=== PATIENT | female | born 1995 | race Caucasian/White ===

== ENCOUNTER 2018-08-08 10:52 | Emergency (ER) | payer OTHER ==
[2018-08-08] MEDS ORDERED: SODIUM CHLORIDE 0.9% 1,000 ML IV STA (11:14)
[2018-08-08] MEDS ORDERED: diphenhydrAMINE 50 MG/ML 1 ML VIAL IVP STA (11:14)
[2018-08-08] MEDS ORDERED: METOCLOPRAMIDE 5 MG/ML 2 ML VIAL IVP STA (11:14)
--- NOTE | 2018-08-08 11:17 | ED ---
Nausea/Vomiting/Diarrhea HPI - General Chief complaint: Nausea/Vomiting/Diarrhea Stated complaint: Vomiting,13 wks pg Time Seen by Provider: 08/08/18 11:04 Source: patient Mode of arrival: wheelchair Limitations: no limitations - History of Present Illness Initial comments: 22-year-old female patient presents to the emergency department today for evaluation of vomiting. Patient states she started vomiting yesterday and has been unable to keep down any food or fluids. Patient states she has had 3 bowel movements today with a have been solid. She denies any fevers or chills with this. Denies any abdominal pain or cramping. States she is 13 weeks . She has had a ultrasound confirming intrauterine . No hematuria, dysuria, urinary urgency, urinary frequency. No abnormal vaginal bleeding or discharge. She denies any recent travel or sick contacts. Denies any use of medications. Patient denies any recent rash, shortness breath, chest pain, back pain, numbness, tingling, dizziness, weakness, headache, visual changes, or any other complaints. - Related Data Previous Rx's Medication Instructions Recorded Cephalexin [Keflex] 500 mg PO Q6H #28 cap 08/08/18 Metoclopramide [Reglan] 10 mg PO Q8H PRN #10 tab 08/08/18 Allergies Allergy/AdvReac Type Severity Reaction Status Date / Time No Known Allergies Allergy Verified 08/08/18 10:55 Review of Systems ROS Statement: Those systems with pertinent positive or pertinent negative responses have been documented in the HPI. ROS Other: All systems not noted in ROS Statement are negative. Past Medical History Past Medical History: No Reported History History of Any Multi-Drug Resistant Organisms: None Reported Past Surgical History: No Surgical Hx Reported Past Psychological History: No Psychological Hx Reported Smoking Status: Current some day smoker Past Alcohol Use History: None Reported Past Drug Use History: Marijuana General Exam Limitations: no limitations General appearance: alert, in no apparent distress, other (Physical well- developed, well-nourished adult female patient in no acute distress. Vital signs upon presentation are temperature 98.4F oral, pulse 105, respirations 20 , blood pressure 112/73, pulse ox 100% on room air.) Eye exam: Present: normal appearance, PERRL, EOMI. Absent: scleral icterus, conjunctival injection, periorbital swelling ENT exam: Present: normal exam, normal oropharynx, mucous membranes moist Respiratory exam: Present: normal lung sounds bilaterally. Absent: respiratory distress, wheezes, rales, rhonchi, stridor Cardiovascular Exam: Present: regular rate, normal rhythm, normal heart sounds. Absent: systolic murmur, diastolic murmur, rubs, gallop, clicks GI/Abdominal exam: Present: soft, normal bowel sounds. Absent: distended, tenderness, guarding, rebound, rigid Neurological exam: Present: alert, oriented X3, CN II-XII intact Psychiatric exam: Present: normal affect, normal mood Skin exam: Present: warm, dry, intact, normal color. Absent: rash Course Vital Signs 08/08/18 08/08/18 10:55 11:18 Temperature 98.5 F Pulse Rate 105 H Respiratory 20 Rate Blood Pressure 112/73 O2 Sat by Pulse 100 Oximetry Medical Decision Making - Medical Decision Making 22-year-old female patient presents to the emergency department today for evaluation of vomiting since 2 AM. Patient is 13 weeks with her first . Patient denies any diarrhea or fever. Labs reviewed and did reveal elevated white blood cell count at 13.2, urinalysis did show evidence of infection with cloudy appearance with 2+ protein, 4+ ketones, large leukocyte esterase, 26 white blood cells, 30 squamous epithelial cells, rare bacteria, few mucous. This has been sent for culture. Upon reevaluation she is feeling much better. We'll start patient on Keflex patient given prescription for Reglan to take as needed though she is advised to avoid use of possible. 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 Return parameters were discussed in detail. She verbalizes understanding and agrees with this plan. - Lab Data Result diagrams: 08/08/18 11:29 08/08/18 11:29 Lab Results 08/08/18 08/08/18 08/08/18 Range/Units 11:29 11:29 11:29 WBC 13.2 H (3.8-10.6) k/uL RBC 4.56 (3.80-5.40) m/uL Hgb 14.0 (11.4-16.0) gm/dL Hct 40.1 (34.0-46.0) % MCV 87.8 (80.0-100.0) fL MCH 30.7 (25.0-35.0) pg MCHC 35.0 (31.0-37.0) g/dL RDW 12.1 (11.5-15.5) % Plt Count 271 (150-450) k/uL Neutrophils % 89 % Lymphocytes % 7 % Monocytes % 3 % Eosinophils % 1 % Basophils % 0 % Neutrophils # 11.8 H (1.3-7.7) k/uL Lymphocytes # 0.9 L (1.0-4.8) k/uL Monocytes # 0.3 (0-1.0) k/uL Eosinophils # 0.1 (0-0.7) k/uL Basophils # 0.0 (0-0.2) k/uL Sodium 137 (137-145) mmol/L Potassium 3.9 (3.5-5.1) mmol/L Chloride 107 (98-107) mmol/L Carbon Dioxide 17 L (22-30) mmol/L Anion Gap 13 mmol/L BUN 9 (7-17) mg/dL Creatinine 0.49 L (0.52-1.04) mg/dL Est GFR (CKD-EPI)AfAm >90 (>60 ml/min/1.73 sqM) Est GFR (CKD-EPI)NonAf >90 (>60 ml/min/1.73 sqM) Glucose 140 H (74-99) mg/dL Calcium 10.0 (8.4-10.2) mg/dL Total Bilirubin 1.1 (0.2-1.3) mg/dL AST 20 (14-36) U/L ALT 11 (9-52) U/L Alkaline Phosphatase 43 (38-126) U/L Total Protein 7.5 (6.3-8.2) g/dL Albumin 4.1 (3.5-5.0) g/dL Amylase 45 (30-110) U/L Lipase 39 (23-300) U/L Urine Color Yellow Urine Appearance Cloudy H (Clear) Urine pH 6.0 (5.0-8.0) Ur Specific [place] 1.028 (1.001-1.035) Urine Protein 2+ H (Negative) Urine Glucose (UA) Negative (Negative) Urine Ketones 4+ H (Negative) Urine Blood Negative (Negative) Urine Nitrite Negative (Negative) Urine Bilirubin Negative (Negative) Urine Urobilinogen <2.0 (<2.0) mg/dL Ur Leukocyte Esterase Large H (Negative) Urine RBC 1 (0-5) /hpf Urine WBC 26 H (0-5) /hpf Ur Squamous Epith Cells 30 H (0-4) /hpf Urine Bacteria Rare H (None) /hpf Urine Mucus Few H (None) /hpf Disposition Clinical Impression: Gastroenteritis Disposition: HOME SELF-CARE Condition: Good Instructions: Gastroenteritis (ED), Acute Nausea and Vomiting (ED) Additional Instructions: Take medications as directed. Complete antibiotic prescription in full. Follow -up with CASTING AND PASTING SUPERVISOR for recheck as soon as possible. Return immediately for any new , worsening, or concerning symptoms. Prescriptions: Cephalexin [Keflex] 500 mg PO Q6H #28 cap Metoclopramide [Reglan] 10 mg PO Q8H PRN #10 tab PRN Reason: Vomiting Is patient prescribed a controlled substance at d/c from ED?: No Referrals: None,Stated [Primary Care Provider] - 1-2 days Time of Disposition: 13:10
[2018-08-08 11:51] LABS: Appearance,Urine Cloudy (Clear); Bacteria,Urine Rare /hpf; Bilirubin,Urine Negative (Negative); Blood,Urine Negative (Negative); Color,Urine Yellow; Glucose,Urine (UA) Negative (Negative); Ketones,Urine 4+ (Negative); Leukocyte Esterase,Urine Large (Negative); Mucus,Urine Few /hpf; Nitrite,Urine Negative (Negative); Protein,Urine 2+ (Negative); RBC,Urine 1 /hpf (0-5); Specific Gravity,Urine 1.028 (1.001-1.035); Squamous Epithelial Cell,Urine 30 /hpf (0-4); Urobilinogen,Urine <2.0 mg/dL (<2.0); WBC,Urine 26 /hpf (0-5)
[2018-08-08 11:53] LABS: ALT 11 U/L (9-52); AST 20 U/L (14-36); Albumin 4.1 g/dL (3.5-5.0); Alkaline Phosphatase 43 U/L (38-126); Amylase 45 U/L (30-110); Anion Gap 13 mmol/L; Blood Urea Nitrogen 9 mg/dL (7-17); Carbon Dioxide 17 mmol/L (22-30); Chloride 107 mmol/L (98-107); Glucose 140 mg/dL (74-99); Lipase 39 U/L (23-300); Potassium 3.9 mmol/L (3.5-5.1); Sodium 137 mmol/L (137-145); Total Bilirubin 1.1 mg/dL (0.2-1.3); Total Protein 7.5 g/dL (6.3-8.2)
[2018-08-08 11:54] LABS: Basophils % (A) 0 %; Eosinophils # (A) 0.1 k/uL (0-0.7); Eosinophils % (A) 1 %; HCT 40.1 % (34.0-46.0); Lymphocytes # (A) 0.9 k/uL (1.0-4.8); Lymphocytes % (A) 7 %; MCH 30.7 pg (25.0-35.0); MCV 87.8 fL (80.0-100.0); Monocytes # (A) 0.3 k/uL (0-1.0); Monocytes % (A) 3 %; Neutrophils # (A) 11.8 k/uL (1.3-7.7); Neutrophils % (A) 89 %; Platelet Count 271 k/uL (150-450); RBC 4.56 m/uL (3.80-5.40); RDW 12.1 % (11.5-15.5); WBC 13.2 k/uL (3.8-10.6)
[2018-08-08] MEDS ORDERED: SODIUM CHLORIDE 0.9% 500 ML 500 ML IV ONE (12:26)
[2018-08-08] MEDS ORDERED: CEPHALEXIN 500MG STARTER PACK 4 CAP BTL PO STA (13:08)
[2018-08-08 13:36] VITALS: BP 118/74; PULSE 96; RESP 18; TEMP 98.1
== END 2018-08-08 13:30 | disposition home or self-care (01) ==
LOC: EC 10:52
DX: O99.611 Diseases of the digestive system complicating pregnancy, first trimester (principal); K52.9 Noninfective gastroenteritis and colitis, unspecified; O99.111 Other diseases of the blood and blood-forming organs and certain disorders involving the immune mechanism complicating pregnancy, first trimester; D72.829 Elevated white blood cell count, unspecified; O98.911 Unspecified maternal infectious and parasitic disease complicating pregnancy, first trimester; O99.331 Smoking (tobacco) complicating pregnancy, first trimester; F17.200 Nicotine dependence, unspecified, uncomplicated; Z53.20 Procedure and treatment not carried out because of patient's decision for unspecified reasons; Z3A.13 13 weeks gestation of pregnancy
CPT/HCPCS: 36415; 80053; 82150; 83690; 85025; 81001; 87086; 99284; 96374; 96375; 96361; J1200; J2765; 87077; 87186

== ENCOUNTER → 2018-10-02 | Outpatient (CLI) | payer OTHER ==
--- NOTE | 2018-10-02 21:59 | US ---
EXAMINATION TYPE: US OB anatomy transabd DATE OF EXAM: 10/02/2018 COMPARISON: NONE HISTORY: 22-year-old female Z34.90 Supervision of Normal TECHNIQUE: Transabdominal (TA) FINDINGS: EXAM MEASUREMENTS: GESTATIONAL AGE / DATING Physician Established: (21 weeks/1 days) EDC: 02/11/2019 Dates by LMP: (21 weeks/1 days) EDC: 02/11/2019 Dates by First Scan: No previous at this facility Dates by Current Scan for: (21 weeks/1 days) EDC: 02/11/2019 SURVEY IUP: Single PLACENTA: Posterior PREVIA: No previa DANYELLE: 14.8 cm Normal CERVICAL LENGTH (transabdominal: norm > 3.0cm): 3.3 cm BIOMETRY PRESENTATION: Breech LIE: Transverse lie with head maternal Left BPD: 4.7 cm 20 weeks / 2 days HC: 18.0 cm 20 weeks / 4 days AC: 17.1 cm 22 weeks / 1 days FL: 3.5 cm 21 weeks / 1 days ESTIMATED WEIGHT IN GRAMS: 424 grams ESTIMATED WEIGHT IN LBS/OZ: 0 lbs. 15 oz. WEIGHT PERCENTAGE BASED ON ESTABLISHED DATE: 61% HC/AC: 1.05 Normal FL/AC: 20% Normal HEART RATE: 158 bpm RHYTHM: Normal ANATOMY SEEN (within normal limits): Lateral Vent (< 1 cm) 0.5 cm Cisterna Magna (< 1.1 cm) 0.4 cm Nuchal Fold (< 0.6 cm) 0.2 cm Cerebellum (varies with age) 2.2 cm Choroid Plexus (bilateral) Midline Falx Cavus Septi Pellucidi Four Chamber Heart Stomach Situs Nose / Lips Diaphragm Kidneys (bilateral) Bladder Cord Insert Three Vessel Cord Arms (bilateral) Legs (bilateral) ANATOMY SUBOPTIMALLY VISUALIZED (due to positioning): Outflow tracts: LVOT/RVOT Longitudinal Spine (as the skin line was not clearly delineated) Transverse Spine Photovoltaic Installer notes: Viable IUP, measurements consistent with dates. IMPRESSION: 1. Single live intrauterine with estimated gestational age of 21 weeks 1 day by LMP. Cardia c ultrasound biometry is exactly concordant place and the child at the 61st percentile for weight. 2. A few of the structures on the survey -- outflow tracts and spine (due to inability to delin eate the skin line during the time of the exam) --were suboptimally visualized. The remaining structu res appear normal. Patient can return for a rescan in one to 2 weeks if desired.
== END | disposition home or self-care (01) ==
LOC: RADUSWWP 10:46
PROVIDERS: ATTEND Obstetrics & Gynecology
DX: Z34.92 Encounter for supervision of normal pregnancy, unspecified, second trimester (principal); Z3A.21 21 weeks gestation of pregnancy
CPT/HCPCS: 76811

== ENCOUNTER → 2018-10-31 | Outpatient (CLI) | payer OTHER ==
--- NOTE | 2018-10-31 11:32 | US ---
EXAMINATION TYPE: US OB >= 14 wk fetus DATE OF EXAM: 10/31/2018 COMPARISON: US 2019 CLINICAL HISTORY: Z34.90 supervision normal pregnancyFollow up for previous limited anatomy TECHNIQUE: Transabdominal (TA) GESTATIONAL AGE / DATING Physician Established: (25 weeks/2 days) EDC: 02/11/2019 Dates by LMP: (25 weeks/2 days) EDC: 02/11/2019 Dates by First Scan: (25 weeks/2 days) EDC: 02/11/2019 Dates by Current Scan: (25 weeks/2 days) EDC: 02/11/2019 SURVEY IUP: Single PLACENTA: Posterior PREVIA: No Previa DANYELLE: 12.7 cm Normal CERVICAL LENGTH (transabdominal: norm > 3.0cm): 3.3 cm BIOMETRY PRESENTATION: Vertex BPD: 6.3 cm 25 weeks / 4 days HC: 22.6 cm 24 weeks / 5 days AC: 20.4 cm 25 weeks / 0 days FL: 4.7 cm 25 weeks / 5 days ESTIMATED WEIGHT IN GRAMS: 786 grams ESTIMATED WEIGHT IN LBS/OZ: 1 lbs. 12 oz. WEIGHT PERCENTAGE BASED ON ESTABLISHED DATES: 37% HC/AC: 1.11 Normal FL/AC: 23% Normal HEART RATE: 150 bpm RHYTHM: Normal ANATOMY SEEN (within normal limits): Outflow tracts: LVOT/RVOT Longitudinal Spine Transverse Spine Live single IUP measuring 25 weeks 2 days with a heart rate of 150bpm and an estimated delivery date of 02/11/2019. IMPRESSION: Single live intrauterine with a calculated sonographic age of 25 weeks and 2 days and an es timated date of delivery of 02/11/2019, concordant with menstrual age. Visualized anatomy appears with in normal limits.
== END | disposition home or self-care (01) ==
LOC: RADUSWWP 10:37
PROVIDERS: ATTEND Obstetrics & Gynecology
DX: Z34.92 Encounter for supervision of normal pregnancy, unspecified, second trimester (principal); Z3A.25 25 weeks gestation of pregnancy
CPT/HCPCS: 76805

== ENCOUNTER → 2019-01-26 | Outpatient (CLI) | payer OTHER ==
--- NOTE | 2019-01-26 17:08 | US ---
EXAMINATION TYPE: US OB >= 14 wk fetus DATE OF EXAM: 01/26/2019 COMPARISON: US CLINICAL HISTORY: Z34.90 Encounter for supervision of normal pregn; for growth TECHNIQUE: Transabdominal (TA) GESTATIONAL AGE / DATING Physician Established: (37 weeks/5 days) EDC: 02/11/2019 Dates by LMP: (37 weeks/5 days) EDC: 02/11/2019 Dates by First Scan: (37 weeks/5 days) EDC: 02/11/2019 Dates by Current Scan: (34 weeks/4 days) EDC: 03/05/2019 Beta HCG (if available): NA SURVEY IUP: Single PLACENTA: fundal posterior PREVIA: No Previa DANYELLE: 11.8 cm Normal CERVICAL LENGTH (transabdominal: norm > 3.0cm): 3.2 cm BIOMETRY PRESENTATION: Vertex LIE: Longitudinal BPD: 8.6 cm 34 weeks / 4 days HC: 31.5 cm 35 weeks / 2 days AC: 31.0 cm 35 weeks / 0 days FL: 6.8 cm 34 weeks / 6 days ESTIMATED WEIGHT IN GRAMS: 2553.0 grams ESTIMATED WEIGHT IN LBS/OZ: 5 lbs. 10 oz. WEIGHT PERCENTAGE BASED ON ESTABLISHED DATES: 6.1% HC/AC: 1.02 normal FL/AC: 21.87 Normal HEART RATE: 136 bpm RHYTHM: Normal IMPRESSION: Single, live IUP, 34 weeks/4 days, EDC: 03/05/2019, HR 136bpm.
== END | disposition home or self-care (01) ==
LOC: RADUSWWP 16:01
PROVIDERS: ATTEND Obstetrics & Gynecology
DX: Z3A.34 34 weeks gestation of pregnancy (principal); Z36.89 Encounter for other specified antenatal screening
CPT/HCPCS: 76805

== ENCOUNTER 2019-09-02 16:08 | Emergency (ER) | payer OTHER ==
[2019-09-02 16:11] VITALS: TEMP 100.3
[2019-09-02] MEDS ORDERED: ACETAMINOPHEN TAB 325 MG TAB PO STA (16:21)
--- NOTE | 2019-09-02 16:26 | ED ---
General Adult HPI - General Chief complaint: Upper Respiratory Infection Stated complaint: cough, chills Time Seen by Provider: 09/02/19 16:12 Source: patient, RN notes reviewed, old records reviewed Mode of arrival: ambulatory Limitations: no limitations - History of Present Illness Initial comments: 22-year-old female patient with no pertinent past history presents ED for chief complaint of sore throat, cough, congestion, fever, headache last 2 days. Patient reports this feels similar to her migraine headaches in the past. Does report that it is a throbbing headache. Denies taking anything for the discomfort including tylenol Motrin. Patient does not believe that she is however reports that she is somewhat noncompliant with her control would like to be checked for . Systemic: Pt denies fatigue, chills, rash. Pt denies weakness, night sweats, weight loss. Neuro: Pt denies visual disturbances, syncope or pre-syncope. HEENT: Pt denies ocular discharge or irritation, otalgia, rhinorrhea, or notable lymphadenopathy. Cardiopulmonary: Pt denies chest pain, SOB, heart palpitations, dyspnea on exertion. Abdominal/GI: Pt denies abdominal pain, n/v/d. : Pt denies dysuria, burning w/ urination, frequency/urgency. Denies new onset urinary or bowel incontinence. MSK: Pt denies myalgia, loss of strength or function in extremities. Neuro: Pt denies new onset weakness, paresthesias. - Related Data Previous Rx's Medication Instructions Recorded Cephalexin [Keflex] 500 mg PO Q6H #28 cap 08/08/18 Metoclopramide [Reglan] 10 mg PO Q8H PRN #10 tab 08/08/18 Oseltamivir [Tamiflu] 75 mg PO Q12HR 5 Days cap 09/02/19 Allergies Allergy/AdvReac Type Severity Reaction Status Date / Time No Known Allergies Allergy Verified 09/02/19 16:11 Review of Systems ROS Statement: Those systems with pertinent positive or pertinent negative responses have been documented in the HPI. ROS Other: All systems not noted in ROS Statement are negative. Past Medical History Past Medical History: No Reported History History of Any Multi-Drug Resistant Organisms: None Reported Past Surgical History: No Surgical Hx Reported Past Psychological History: No Psychological Hx Reported Smoking Status: Former smoker Past Alcohol Use History: None Reported Past Drug Use History: Marijuana General Exam - General Exam Comments Initial Comments: Constitutional: NAD, AOX3, Pt has pleasant affect. HEENT: NC/AT, trachea midline, neck supple, no lymphadenopathy. Posterior pharynx non erythematous, without exudates. External ears appear normal, without discharge. Mucous membranes moist. Eyes PERRLA, EOM intact. There is no scleral icterus. No pallor noted. Cardiopulmonary: RRR, no murmurs, rubs or gallops, no JVD noted. Lungs CTAB in anterior and posterior zheng. No peripheral edema. Abdominal exam: Abdomen soft and non-distended. Abdomen non-tender to palpation in all 4 quadrants. Bowel sounds active in LLQ. No hepatosplenomegaly. No ecchymosis Neuro: CN II-XII intact. No nuchal rigidity. No raccon eyes, no rm sign, no hemotympanum. No cervical spinal tenderness. NIH 0. MSK: No posterior calf tenderness bilaterally, homans sign negative bilaterally. Posterior tibialis and radial pulse +2 bilaterally. Sensation intact in upper and lower extremities. Full active ROM in upper and lower extremities, 5/5 stregnth. Limitations: no limitations Course Vital Signs 09/02/19 16:08 Temperature 100.3 F H Pulse Rate 124 H Respiratory 18 Rate Blood Pressure 112/58 O2 Sat by Pulse 99 Oximetry Medical Decision Making - Medical Decision Making 22-year-old female patient with no pertinent past history presents ED for chief complaint of sore throat, cough, congestion, fever, headache last 2 days. Patient reports this feels similar to her migraine headaches in the past. Does report that it is a throbbing headache. Denies taking anything for the discomfort including tylenol Motrin. Patient does not believe that she is however reports that she is somewhat noncompliant with her control would like to be checked for . Patient also displayed mild fever, patient Mr. diaphoretic. Physical exam displayed intact neurologic exam, no pathologic findings noted. Laboratory investigations were obtained which displayed influenza A positive. Group A strep negative. Urine did display +2 ketones, +1 glucose, was contaminated will be cultured. Chest x-ray is negative for acute cardiopulmonary process. I symptoms onset within the last 48 hours patient be initiated on Tamiflu. We'll follow up with primary care provider will return to ER if condition worsens. Case discussed with Dr. Phoenix. - Lab Data Lab Results 09/02/19 09/02/19 09/02/19 Range/Units 16:25 16:25 16:25 Urine Color Yellow Urine Appearance Cloudy H (Clear) Urine pH 6.0 (5.0-8.0) Ur Specific [place] 1.030 (1.001-1.035) Urine Protein 1+ H (Negative) Urine Glucose (UA) Negative (Negative) Urine Ketones 2+ H (Negative) Urine Blood Negative (Negative) Urine Nitrite Negative (Negative) Urine Bilirubin Negative (Negative) Urine Urobilinogen <2.0 (<2.0) mg/dL Ur Leukocyte Esterase Large H (Negative) Urine RBC 2 (0-5) /hpf Urine WBC 92 H (0-5) /hpf Ur Squamous Epith Cells 59 H (0-4) /hpf Urine Bacteria Few H (None) /hpf Urine Mucus Few H (None) /hpf Urine HCG, Qual Not Detected (Not Detectd) Influenza Type A RNA Detected H (Not Detectd) Influenza Type B (PCR) Not Detected (Not Detectd) Group A Strep Rapid (Negative) 09/02/19 Range/Units 16:42 Urine Color Urine Appearance (Clear) Urine pH (5.0-8.0) Ur Specific [place] (1.001-1.035) Urine Protein (Negative) Urine Glucose (UA) (Negative) Urine Ketones (Negative) Urine Blood (Negative) Urine Nitrite (Negative) Urine Bilirubin (Negative) Urine Urobilinogen (<2.0) mg/dL Ur Leukocyte Esterase (Negative) Urine RBC (0-5) /hpf Urine WBC (0-5) /hpf Ur Squamous Epith Cells (0-4) /hpf Urine Bacteria (None) /hpf Urine Mucus (None) /hpf Urine HCG, Qual (Not Detectd) Influenza Type A RNA (Not Detectd) Influenza Type B (PCR) (Not Detectd) Group A Strep Rapid Negative (Negative) Disposition Clinical Impression: Influenza A Disposition: HOME SELF-CARE Condition: Stable Instructions (If sedation given, give patient instructions): Influenza (ED) Additional Instructions: Follow-up with primary care provider tomorrow. Take Tamiflu as directed. May use Tylenol as needed for fever. Return to ER if condition worsens. Prescriptions: Oseltamivir [Tamiflu] 75 mg PO Q12HR 5 Days cap Is patient prescribed a controlled substance at d/c from ED?: No Referrals: None,Stated [Primary Care Provider] - 1-2 days
[2019-09-02 16:40] LABS: Appearance,Urine Cloudy (Clear); Bacteria,Urine Few /hpf; Bilirubin,Urine Negative (Negative); Blood,Urine Negative (Negative); Color,Urine Yellow; Glucose,Urine (UA) Negative (Negative); Ketones,Urine 2+ (Negative); Leukocyte Esterase,Urine Large (Negative); Mucus,Urine Few /hpf; Nitrite,Urine Negative (Negative); Protein,Urine 1+ (Negative); RBC,Urine 2 /hpf (0-5); Squamous Epithelial Cell,Urine 59 /hpf (0-4); Urobilinogen,Urine <2.0 mg/dL (<2.0); WBC,Urine 92 /hpf (0-5)
--- NOTE | 2019-09-02 16:57 | XR ---
EXAMINATION TYPE: XR chest 2V DATE OF EXAM: 09/02/2019 COMPARISON: NONE HISTORY: Chest pain TECHNIQUE: Frontal and lateral views of the chest are obtained. FINDINGS: There is no focal air space opacity. No evidence for pneumothorax. No pleural effusion. The cardiac silhouette size is within normal limits. The osseous structures are grossly intact. IMPRESSION: 1. No acute cardiopulmonary process.
[2019-09-02] MEDS ORDERED: OSELTAMIVIR 75 MG CAP PO STA (17:13)
[2019-09-02 17:39] VITALS: BP 122/62; PULSE 102; RESP 16
--- NOTE | 2019-09-02 17:45 | ED ---
Medical Decision Making - Medical Decision Making Patient reports that headache had resolved upon discharge. - Lab Data Lab Results 09/02/19 09/02/19 09/02/19 Range/Units 16:25 16:25 16:25 Urine Color Yellow Urine Appearance Cloudy H (Clear) Urine pH 6.0 (5.0-8.0) Ur Specific [place] 1.030 (1.001-1.035) Urine Protein 1+ H (Negative) Urine Glucose (UA) Negative (Negative) Urine Ketones 2+ H (Negative) Urine Blood Negative (Negative) Urine Nitrite Negative (Negative) Urine Bilirubin Negative (Negative) Urine Urobilinogen <2.0 (<2.0) mg/dL Ur Leukocyte Esterase Large H (Negative) Urine RBC 2 (0-5) /hpf Urine WBC 92 H (0-5) /hpf Ur Squamous Epith Cells 59 H (0-4) /hpf Urine Bacteria Few H (None) /hpf Urine Mucus Few H (None) /hpf Urine HCG, Qual Not Detected (Not Detectd) Influenza Type A RNA Detected H (Not Detectd) Influenza Type B (PCR) Not Detected (Not Detectd) Group A Strep Rapid (Negative) 09/02/19 Range/Units 16:42 Urine Color Urine Appearance (Clear) Urine pH (5.0-8.0) Ur Specific [place] (1.001-1.035) Urine Protein (Negative) Urine Glucose (UA) (Negative) Urine Ketones (Negative) Urine Blood (Negative) Urine Nitrite (Negative) Urine Bilirubin (Negative) Urine Urobilinogen (<2.0) mg/dL Ur Leukocyte Esterase (Negative) Urine RBC (0-5) /hpf Urine WBC (0-5) /hpf Ur Squamous Epith Cells (0-4) /hpf Urine Bacteria (None) /hpf Urine Mucus (None) /hpf Urine HCG, Qual (Not Detectd) Influenza Type A RNA (Not Detectd) Influenza Type B (PCR) (Not Detectd) Group A Strep Rapid Negative (Negative) Disposition Clinical Impression: Influenza A Disposition: HOME SELF-CARE Condition: Stable Instructions (If sedation given, give patient instructions): Influenza (ED) Additional Instructions: Follow-up with primary care provider tomorrow. Take Tamiflu as directed. May use Tylenol as needed for fever. Return to ER if condition worsens. Prescriptions: Oseltamivir [Tamiflu] 75 mg PO Q12HR 5 Days cap Is patient prescribed a controlled substance at d/c from ED?: No Referrals: None,Stated [Primary Care Provider] - 1-2 days
== END 2019-09-02 17:42 | disposition home or self-care (01) ==
LOC: EC 16:08
DX: J10.1 Influenza due to other identified influenza virus with other respiratory manifestations (principal); Z91.19 Patient's noncompliance with other medical treatment and regimen; Z87.891 Personal history of nicotine dependence; Z86.69 Personal history of other diseases of the nervous system and sense organs
CPT/HCPCS: 71046; 81001; 81025; 87077; 87081; 87086; 87186; 87430; 87502; 99284

== ENCOUNTER → 2022-03-26 | Outpatient (CLI) | payer OTHER ==
--- NOTE | 2022-03-26 07:44 | US ---
EXAMINATION TYPE: US abdomen complete DATE OF EXAM: 03/26/2022 COMPARISON: NONE CLINICAL HISTORY: R10.2 SUBRAPUBIC PAIN,Z84.2 FAM H XOVARIAN CYST. TECHNIQUE: Multiple sonographic images of the abdomen are obtained. FINDINGS: EXAM MEASUREMENTS: Liver Length: 10.9 cm Gallbladder Wall: 0.3 cm CBD: 0.3 cm Spleen: 12.0 cm Right Kidney: 11.3 x 3.9 x 5.0 cm Left Kidney: 9.8 x 4.7 x 5.0 cm TELEVISION [employer]SC[employer] DIRECTOR NOTES: Pancreas: visualized portions wnl Liver: wnl Gallbladder: No stones seen Evidence for sonographic Faulkner's sign: No CBD: wnl Spleen: wnl Right Kidney: No hydronephrosis or masses seen Left Kidney: No hydronephrosis or masses seen Upper IVC: wnl Abd Aorta: wnl The liver is homogenous. The intrahepatic portion of the IVC and proximal abdominal aorta are within normal limits. There is no evidence of cholelithiasis. Common bile duct is unremarkable. The visu alized portions of the pancreas are homogenous. The spleen is unremarkable. Kidneys are symmetric a nd free of hydronephrosis. No renal lesions are seen. IMPRESSION: Unremarkable study
--- NOTE | 2022-03-26 07:46 | US ---
EXAMINATION TYPE: US pelvic complete DATE OF EXAM: 03/26/2022 COMPARISON: NONE CLINICAL HISTORY: R10.2 SUBRAPUBIC PAIN,Z84.2 FAM H XOVARIAN CYST. TECHNIQUE: Transabdominal (TA). Date of LMP: 02/28/2022 EXAM MEASUREMENTS: Uterus: 7.2 x 4.1 x 5.1 cm Endometrial Stripe: 0.9 cm Right Ovary: 2.5 x 2.0 x 2.0 cm Left Ovary: 2.7 x 2.3 x 2.2 cm 1. Uterus: Anteverted wnl 2. Endometrium: wnl 3. Right Ovary: wnl 4. Left Ovary: wnl 5. Bilateral Adnexa: wnl 6. Posterior cul-de-sac: no free fluid IMPRESSION: No discrete abnormality appreciated.
== END | disposition home or self-care (01) ==
LOC: RADUSWWP 07:01
PROVIDERS: ATTEND Family Medicine
DX: R10.2 Pelvic and perineal pain (principal); Z84.2 Family history of other diseases of the genitourinary system
CPT/HCPCS: 76700; 76856

== ENCOUNTER → 2022-06-16 | Outpatient (CLI) | payer OTHER ==
--- NOTE | 2022-06-16 11:37 | US ---
EXAMINATION TYPE: Transabdominal DATE OF EXAM: 06/16/2022 11:22 AM COMPARISON: NONE CLINICAL HISTORY: Z34.90 SUPRVSN NORMAL . Positive beta hCG test. EXAM PERFORMED: Transabdominal (TA) EXAM MEASUREMENTS: GESTATIONAL AGE / DATING Physician Established: Not yet established Dates by LMP: (11 weeks/2 days) EDC: 01-03-23 Dates by First Scan: No previous this is first scan Dates by Current Scan for: (8 weeks/0 days) EDC: 01-26-22 MATERNAL ANATOMY Uterus: 8.2 x 7.1 x 6.9cm Right Ovary: 3.6 x 3.1 x 2.7cm Left Ovary: 2.6 x 2.3 x 1.9cm Post CDS / Adnexa: wnl Presence of free fluid: no GESTATION / SURVEY CRL: 1.6 (8 weeks/0 days) Yolk Sac (normal less than 6mm): 3mm Heart Rate: 155 bpm Rhythm: Normal IUP: Viable IUP Date of LMP: 03-29-22 Beta HcG (if available): Not available at this time Single live intrauterine gestation as gestational sac, yolk sac, and pole are seen. No free flu id. Both ovaries seen. No suspicious extra ovarian adnexal masses. IMPRESSION: Single live intrauterine gestation, mean crown-rump length 1.6 cm corresponding to 8 week 0 day old fetus.
== END | disposition home or self-care (01) ==
LOC: RADUSWWP 11:02
PROVIDERS: ATTEND Obstetrics & Gynecology
DX: Z34.91 Encounter for supervision of normal pregnancy, unspecified, first trimester (principal); Z3A.11 11 weeks gestation of pregnancy
CPT/HCPCS: 76801

== ENCOUNTER → 2022-08-31 | Outpatient (CLI) | payer OTHER ==
--- NOTE | 2022-08-31 14:28 | US ---
EXAMINATION TYPE: US OB anatomy transabd DATE OF EXAM: 08/31/2022 COMPARISON: 06/16/2022 HISTORY: 26-year-old female Z34.90 NORMAL PREG, UNSP Anatomy scan. TECHNIQUE: Transabdominal (TA) FINDINGS: EXAM MEASUREMENTS: GESTATIONAL AGE / DATING Physician Established: (18 weeks/6 days) EDC: 01/26/2023 Dates by First Scan: (18 weeks/6 days) EDC: 01/26/2023 Dates by Current Scan for: (19 weeks/5 days) (6 days more than expected from 06/16/2022) EDC: 01/20/2023 SURVEY IUP: Single PLACENTA: Anterior PREVIA: No previa DANYELLE: 14.9 cm Normal CERVICAL LENGTH (transabdominal: norm > 3.0cm): 4.2 cm BIOMETRY LIE: Transverse lie with head to maternal left BPD: 4.5 cm 19 weeks / 5 days HC: 16.7 cm 19 weeks / 3 days AC: 14.4 cm 19 weeks / 6 days FL: 3.1 cm 19 weeks / 5 days ESTIMATED WEIGHT IN GRAMS: 305 grams ESTIMATED WEIGHT IN LBS/OZ: 0 lbs. 11 oz. WEIGHT PERCENTAGE BASED ON ESTABLISHED DATE: 88 % HC/AC: 1.2 Normal FL/AC: 22% HEART RATE: 147 bpm RHYTHM: Normal ANATOMY SEEN (within normal limits): Lateral Vent (< 1 cm) 0.7 cm Cisterna Magna (< 1.1 cm) 0.4 cm Nuchal Fold (< 0.6 cm) 0.5 cm Cerebellum (varies with age) 1.9 cm Choroid Plexus (bilateral) Midline Falx Cavus Septi Pellucidi Four Chamber Heart Outflow tracts: RVOT Stomach Situs Nose / Lips Diaphragm Kidneys (bilateral) Bladder Cord Insert Three Vessel Cord Longitudinal Spine Transverse Spine Arms (bilateral) Legs (bilateral) ANATOMY NOT SEEN adequately: Outflow tracts: LVOT IMPRESSION: 1. Single live intrauterine with established gestational age of 18 weeks 6 days by prior da ting scan. Current ultrasound biometry is larger at 19 weeks 5 days placing the child at the 88th per centile for weight. Follow-up as clinically indicated. 2. The LVOT was not adequately visualized. Patient can return for rescan for the LVOT in 1 to 2 weeks . The remaining anatomy appears normal.
== END | disposition home or self-care (01) ==
LOC: RADUSWWP 08:17
PROVIDERS: ATTEND Obstetrics & Gynecology
DX: Z34.92 Encounter for supervision of normal pregnancy, unspecified, second trimester (principal); Z3A.19 19 weeks gestation of pregnancy
CPT/HCPCS: 76811

== ENCOUNTER → 2023-01-06 | Outpatient (CLI) | payer OTHER ==
--- NOTE | 2023-01-06 14:43 | US ---
EXAMINATION TYPE: US OB >= 14 wk fetus DATE OF EXAM: 01/06/2023 COMPARISON: None CLINICAL INDICATION: Female, 27 years old with history of Z34.90 SUPERVISION OF NORMAL ; [facility] TECHNIQUE: OBTA GESTATIONAL AGE / DATING Physician Established: (37 weeks/1 days) EDC: 01/26/2023 Dates by LMP: (37 weeks/1 days) EDC: 01/26/2023 Dates by First Scan: (37 weeks/1 days) EDC: 01/26/2023 Dates by Current Scan: (36 weeks/3 days) (8 days less growth than expected compared to 09/24/2022) EDC: 01/31/2023 SURVEY IUP: Single PLACENTA: Anterior - fundal PREVIA: No Previa DANYELLE: 14.5 cm Normal CERVICAL LENGTH (transabdominal: norm > 3.0cm): 3.4 cm BIOMETRY PRESENTATION: Vertex LIE: Longitudinal BPD: 8.6 cm 34 weeks / 4 days HC: 31.3 cm 35 weeks / 1 days AC: 33.8 cm 37 weeks / 5 days FL: 7.4 cm 38 weeks / 1 days ESTIMATED WEIGHT IN GRAMS: 3112 grams ESTIMATED WEIGHT IN LBS/OZ: 6 lbs. 14 oz. WEIGHT PERCENTAGE BASED ON ESTABLISHED DATES: 56% (versus 67%, previously) HC/AC: 0.9 Normal FL/AC: 22 Normal HEART RATE: 179 bpm RHYTHM: Normal IMPRESSION: 1. Single live intrauterine with estimated gestational age of 37 weeks 1 day by LMP. Curren t ultrasound biometry is concordant at 36 weeks 3 days (though with 8 days less growth than expected compared to 09/24/2022). 2. EFW percentile now 56% compared to 67%, previously. 3. heart rate 179 BPM. Follow-up as clinically indicated.
== END | disposition home or self-care (01) ==
LOC: RADUSWWP 07:14
PROVIDERS: ATTEND Obstetrics & Gynecology
DX: Z34.93 Encounter for supervision of normal pregnancy, unspecified, third trimester (principal); Z3A.37 37 weeks gestation of pregnancy
CPT/HCPCS: 76805

== ENCOUNTER 2023-01-19 21:40 | Inpatient (IN) | payer OTHER ==
[2023-01-19] MEDS ORDERED: miSOPROStoL 200 MCG TAB PO PRN (22:20)
[2023-01-19] MEDS ORDERED: PENICILLIN G POTASSIUM 5,000,000 UNIT in DEXTROSE 5% IN WATER 100 ML IVPB STA ×2 (22:20)
[2023-01-19] MEDS ORDERED: METHYLERGONOVINE 0.2 MG/ML 1 ML AMP IM PRN (22:20)
[2023-01-19] MEDS ORDERED: OXYTOCIN 10 UNIT/ML 1 ML VIAL IM PRN (22:20)
[2023-01-19] MEDS ORDERED: TERBUTALINE 1 MG/ML VIAL SQ PRN (22:20)
[2023-01-19] MEDS ORDERED: TRANEXAMIC ACID IN NACL,ISO-OS 1,000 MG in EMPTY BAG 1 BAG IV PRN (22:20)
[2023-01-19] MEDS ORDERED: LIDOCAINE 0.5% (PF) 5 MG/ML (50 ML SDV) SQ PRN (22:20)
[2023-01-19] MEDS ORDERED: CARBOPROST TROMETHAMINE 250 MCG/ML 1 ML AMP IM PRN (22:20)
[2023-01-19] MEDS ORDERED: OXYTOCIN 30 UNITS/500 ML NS 30 UNIT in SALINE 1 500ML.BAG IV SCH (22:30)
[2023-01-19] MEDS ORDERED: LACTATED RINGERS 1,000 ML IV SCH (22:30)
[2023-01-19 23:12] LABS: Appearance,Urine Cloudy (Clear); Bacteria,Urine Rare /hpf; Bilirubin,Urine Negative (Negative); Blood,Urine Trace (Negative); Color,Urine Yellow; Glucose,Urine (UA) Negative (Negative); Ketones,Urine 2+ (Negative); Leukocyte Esterase,Urine Trace (Negative); Mucus,Urine Moderate /hpf; Nitrite,Urine Negative (Negative); Protein,Urine 1+ (Negative); RBC,Urine 16 /hpf (0-5); Specific Gravity,Urine 1.028 (1.001-1.035); Squamous Epithelial Cell,Urine 5 /hpf (0-4); WBC,Urine 3 /hpf (0-5)
[2023-01-19 23:13] LABS: Basophils % (A) 0 %; Eosinophils % (A) 0 %; HGB 12.5 gm/dL (11.4-16.0); Lymphocytes # (A) 2.1 k/uL (1.0-4.8); Lymphocytes % (A) 18 %; MCH 31.7 pg (25.0-35.0); MCHC 34.8 g/dL (31.0-37.0); Mean Platelet Volume 7.9; Monocytes # (A) 0.6 k/uL (0-1.0); Monocytes % (A) 5 %; Neutrophils # (A) 8.5 k/uL (1.3-7.7); Neutrophils % (A) 74 %; Platelet Count 307 k/uL (150-450); RBC 3.96 m/uL (3.80-5.40); WBC 11.5 k/uL (3.8-10.6)
[2023-01-19 23:17] LABS: Amphetamine Screen,Urine Not Detected (NotDetected); Barbiturate Screen,Urine Not Detected (NotDetected); Benzodiazepines Screen,Urine Not Detected (NotDetected); Cocaine Screen,Urine Not Detected (NotDetected); Methadone Screen, Urine Not Detected (NotDetected); Opiate Screen,Urine Not Detected (NotDetected); Oxycodone Screen, Urine Not Detected (NotDetected); Phencyclidine Screen,Urine Not Detected (NotDetected); Tricyclic Antidepressant,Urine Not Detected (NotDetected); Urn Cannabinoid Scrn Detected (NotDetected)
--- NOTE | 2023-01-19 23:53 | P.HPOB ---
History of Present Illness H&P Date: 01/19/23 Chief Complaint: 39-0/7 weeks, active labor, no local care The patient is a 27-year-old 2 para 1001 admitted at 39-0/7 weeks as established by an 8 week ultrasound. She is admitted with no local care, her care having been received at [facility] through a different practice. She presents in active labor with all signs reassuring, category 1 heart rate tracing in active labor with cervical dilation at 6 cm. Her has reportedly been uncomplicated though she has an unknown group B strep status. Obstetrical history: 2 para 1001 with 1 previous term vaginal delivery without compilations. Current statistics are listed in history of present illness. EDC of 01/26/2023 was established by a week ultrasound. Laboratory workup demonstrates a blood type of A+ with a negative antibody screen. Rubella status is immune. The remainder of laboratory workup was within normal limits. Group B strep status is unknown. Gynecologic history: Unremarkable with no history of any infections to include STDs. Review of Systems Review of systems is confined to history of present illness. Past Medical History Past Medical History: No Reported History History of Any Multi-Drug Resistant Organisms: None Reported Past Surgical History: No Surgical Hx Reported Past Anesthesia/Blood Transfusion Reactions: No Reported Reaction Past Psychological History: No Psychological Hx Reported Smoking Status: Never smoker Past Alcohol Use History: None Reported Past Drug Use History: Marijuana Medications and Allergies Home Medications Medication Instructions Recorded Confirmed Type Vit No.179/Iron/Folic 1 each PO DAILY 01/19/23 01/19/23 History [ Tablet] RX: Omeprazole 20 mg PO DAILY 01/19/23 01/19/23 History Allergies Allergy/AdvReac Type Severity Reaction Status Date / Time No Known Allergies Allergy Verified 01/19/23 21:51 Exam Vital Signs Temp Pulse Resp BP Pulse Ox 01/19/23 22:25 98.5 F 66 16 116/63 100 Intake and Output 01/19/23 01/19/23 01/20/23 14:59 22:59 06:59 Other: Weight 73.936 kg In general, this is a well-developed, well-nourished white female in discomfort as she is in active labor and near delivery. Her heart has a regular rhythm and rate without murmur. Her lungs clear to auscultation bilaterally in all zhegn. Her abdomen is gravid, nondistended, has normal active bowel sounds, is soft, nontender, and without any palpable masses aside from uterine fundus. Her extremities without any cyanosis, clubbing, or edema and are nontender to palpation bilaterally. Cervical examination demonstrates her cervix to be approximately 9 cm dilated, 100% effaced, the vertex in presentation at -1-0 station. Artificial rupture of membranes is carried out demonstrating clear moderate to thick meconium-stained fluid. Results Result Diagrams: 01/19/23 22:30 01/19/23 22:30 Abnormal Lab Results - Last 24 Hours (Table) 01/19/23 01/19/23 Range/Units 22:30 22:30 WBC 11.5 H (3.8-10.6) k/uL Neutrophils # 8.5 H (1.3-7.7) k/uL Urine Appearance Cloudy H (Clear) Urine Protein 1+ H (Negative) Urine Ketones 2+ H (Negative) Urine Blood Trace H (Negative) Ur Leukocyte Esterase Trace H (Negative) Urine RBC 16 H (0-5) /hpf Ur Squamous Epith Cells 5 H (0-4) /hpf Urine Bacteria Rare H (None) /hpf Urine Mucus Moderate H (None) /hpf U Marijuana (THC) Screen Detected H (NotDetected) Assessment and Plan (1) Meconium in amniotic fluid affecting management of mother Current Visit: Yes Status: Acute Code(s): O36.8990 - MATERNAL CARE FOR OTH PROBLEMS, UNSP TRIMESTER, UNSP SNOMED Code(s): 33914318 (2) Active labor at term Current Visit: Yes Status: Acute Code(s): BCJ6870 - SNOMED Code(s): 24923749 Plan: The patient is admitted for active management of labor. She has declined epidural or other analgesic options. She will continue to have close maternal and surveillance and expectant management will be practiced. I would anticipate normal spontaneous vaginal delivery in the near term.
[2023-01-20] MEDS ORDERED: diphenhydrAMINE 50 MG CAP PO PRN (00:30)
[2023-01-20] MEDS ORDERED: OXYTOCIN 30 UNITS/500 ML NS 30 UNIT in SALINE 1 500ML.BAG IV SCH (00:30)
[2023-01-20] MEDS ORDERED: LANOLIN CREAM 5 GM TUBE TOPICAL PRN (00:30)
[2023-01-20] MEDS ORDERED: HYDROcodone/APAP 7.5-325MG 1 EACH TAB PO PRN (00:30)
[2023-01-20] MEDS ORDERED: ZOLPIDEM 5 MG TAB PO PRN (00:30)
[2023-01-20] MEDS ORDERED: HYDROcodone/APAP 5-325MG 1 EACH TAB PO PRN (00:30)
[2023-01-20] MEDS ORDERED: BENZOCAINE/MENTHOL SPRAY 1 GM/SPRAY AEROSOL TOPICAL PRN (00:30)
[2023-01-20] MEDS ORDERED: diphenhydrAMINE 50 MG/ML 1 ML VIAL IVP PRN ×2 (00:30)
[2023-01-20] MEDS ORDERED: diphenhydrAMINE 25 MG CAP PO PRN (00:30)
[2023-01-20] MEDS ORDERED: SIMETHICONE 80 MG CHEWABLE PO PRN (00:30)
[2023-01-20] MEDS ORDERED: HYDROCORTISONE 2.5% RECTAL CREAM 30 GM TUBE RECTAL PRN (00:30)
[2023-01-20] MEDS ORDERED: ACETAMINOPHEN TAB 325 MG TAB PO PRN (00:30)
--- NOTE | 2023-01-20 00:34 | P.PROBDLV ---
Vaginal Delivery Note - . Vaginal Delivery Note: The patient is a 27-year-old 2 para 1001 admitted at 39-0/7 weeks by good dating parameters. She is admitted in active labor with all signs reassuring, category 1 heart rate tracing. She has had care through a local doctor's office with the intention to deliver at [facility]. Her has reportedly been uncomplicated and group B strep status has not been determined reportedly. As a result, she had antibiotic prophylaxis started. She presented at 6 cm and was making rapid progress. She had artificial rupture of membranes carried out demonstrating moderate to thick meconium-stained fluid and progressed quickly to complete. She pushed over the course of a single contraction to a normal spontaneous vaginal delivery of a viable 7 lbs. 7 oz. baby girl with Apgars of 7 at 1 minute and 9 at 5 minutes delivered in the right occiput anterior position. There was a loose nuchal cord 1 which was reduced following delivery of the infant. The placenta was delivered spontaneously, intact, and grossly normal although there was a very large accessory lobe of the placenta. There was a grossly normal three-vessel cord inserted approximately 3-4 cm from the margin of the main placental disc. There were no lacerations of the perineum, vagina, or cervix. Estimated blood loss for the case was approximately 100 mL. There were no complications. All sponge, instrument, needle counts were correct. Both mother and infant are resting comfortably in recovery.
[2023-01-20] MEDS ORDERED: PENICILLIN G POTASSIUM 2,500,000 UNIT in DEXTROSE 5% IN WATER 100 ML IVPB SCH ×2 (02:30)
[2023-01-20] MEDS: IBUPROFEN 600 MG TAB PO PRN ×2 (04:54→20:10)
[2023-01-20] MEDS: SENNOSIDES-DOCUSATE SODIUM 1 EACH TAB PO SCH ×2 (08:32→20:31)
--- NOTE | 2023-01-20 08:41 | P.PNOBGVD ---
Subjective - Subjective Patient reports: Reports appetite normal, Reports voiding normally, Reports pain well controlled, Reports ambulating normally : doing well, nursing well Objective - Latest Vital Signs Latest vital signs: Vital Signs Temp Pulse Resp BP Pulse Ox 01/20/23 08:00 97.9 F 70 16 126/71 98 01/20/23 04:30 97.9 F 73 16 132/78 01/20/23 02:25 63 16 112/69 01/20/23 01:55 70 16 110/66 01/20/23 01:25 85 16 108/62 01/20/23 01:10 81 16 122/71 01/20/23 00:55 73 16 117/61 98 01/20/23 00:40 80 16 124/74 100 01/20/23 00:25 97.6 F 88 16 120/73 97 01/19/23 22:25 98.5 F 66 16 116/63 100 Intake and Output 01/19/23 01/20/23 01/20/23 22:59 06:59 14:59 Intake Total 499.5 Output Total 200 Balance 299.5 Intake: Intake, IV Titration 499.5 Amount Oxytocin 30 Units/500 ml 499.5 Ns 30 unit In Saline 1 500ml.bag @ Per Protocol IV .Q0M [facility] Rx#:[id number] Output: Estimated Blood Loss 100 Output, Quantitative 100 Blood Loss Other: # Voids 1 1 Weight 73.936 kg - Exam Extremities: Present: normal Abdomen: Present: normal appearance, soft Uterus: Present: normal, firm (The uterine fundus is tonic and nontender below the umbilicus.) - Labs Labs: Abnormal Lab Results - Last 24 Hours (Table) 01/19/23 01/19/23 Range/Units 22:30 22:30 WBC 11.5 H (3.8-10.6) k/uL Neutrophils # 8.5 H (1.3-7.7) k/uL Urine Appearance Cloudy H (Clear) Urine Protein 1+ H (Negative) Urine Ketones 2+ H (Negative) Urine Blood Trace H (Negative) Ur Leukocyte Esterase Trace H (Negative) Urine RBC 16 H (0-5) /hpf Ur Squamous Epith Cells 5 H (0-4) /hpf Urine Bacteria Rare H (None) /hpf Urine Mucus Moderate H (None) /hpf U Marijuana (THC) Screen Detected H (NotDetected) Assessment and Plan (1) Meconium in amniotic fluid affecting management of mother Current Visit: Yes Status: Acute Code(s): O36.8990 - MATERNAL CARE FOR OTH PROBLEMS, UNSP TRIMESTER, UNSP SNOMED Code(s): 86031381 (2) Active labor at term Current Visit: Yes Status: Acute Code(s): VZA9725 - SNOMED Code(s): 30685800 (3) Normal spontaneous vaginal delivery Current Visit: Yes Status: Acute Code(s): O80 - ENCOUNTER FOR FULL-TERM UNCOMPLICATED DELIVERY SNOMED Code(s): 81478641 Plan: Continue routine care. I would anticipate discharge home perhaps late tomorrow as long as the infant is released. The will require approximately 48 hours of observation given uncertain group B strep status and inadequate antibiotic prophylaxis.
[2023-01-20 12:29] LABS: Hepatitis B Surface Antigen Nonreactive
[2023-01-20 18:16] LABS: C. trachomatis,PCR Negative (Negative)
[2023-01-21 06:19] LABS: Basophils % (A) 0 %; Eosinophils # (A) 0.1 k/uL (0-0.7); Eosinophils % (A) 1 %; HCT 34.3 % (34.0-46.0); HGB 11.7 gm/dL (11.4-16.0); Lymphocytes # (A) 2.8 k/uL (1.0-4.8); Lymphocytes % (A) 34 %; MCH 31.8 pg (25.0-35.0); MCHC 34.3 g/dL (31.0-37.0); MCV 92.7 fL (80.0-100.0); Mean Platelet Volume 7.3; Monocytes # (A) 0.5 k/uL (0-1.0); Monocytes % (A) 6 %; Neutrophils # (A) 4.5 k/uL (1.3-7.7); Neutrophils % (A) 55 %; Platelet Count 225 k/uL (150-450); RDW 13.1 % (11.5-15.5); WBC 8.3 k/uL (3.8-10.6)
[2023-01-21 07:19] LABS: N. gonorrhoeae,PCR Negative (Negative)
--- NOTE | 2023-01-21 11:45 | P.PNOBGVD ---
Subjective - Subjective Patient reports: Reports appetite normal, Reports voiding normally, Reports pain well controlled, Reports ambulating normally : doing well, other (Pediatrics is recommending the patient remained for another 24 hours of observation secondary to unknown group B strep status and inadequate antibiotic prophylaxis.) Objective - Latest Vital Signs Latest vital signs: Vital Signs Temp Pulse Resp BP Pulse Ox 01/21/23 08:00 98.7 F 67 16 121/78 01/21/23 00:00 97.9 F 56 L 16 116/69 01/20/23 20:15 98.2 F 62 16 132/82 01/20/23 16:00 98 F 76 16 107/65 98 01/20/23 11:51 97.4 F L 68 16 131/71 - Exam Extremities: Present: normal Abdomen: Present: normal appearance, soft Uterus: Present: normal, firm (Uterine fundus as tonic and nontender below the umbilicus.) - Labs Labs: Abnormal Lab Results - Last 24 Hours (Table) 01/21/23 Range/Units 05:59 RBC 3.70 L (3.80-5.40) m/uL Assessment and Plan (1) Meconium in amniotic fluid affecting management of mother Current Visit: Yes Status: Acute Code(s): O36.8990 - MATERNAL CARE FOR OTH PROBLEMS, UNSP TRIMESTER, UNSP SNOMED Code(s): 96651063 (2) Active labor at term Current Visit: Yes Status: Acute Code(s): KPJ3783 - SNOMED Code(s): 08493363 (3) Normal spontaneous vaginal delivery Current Visit: Yes Status: Acute Code(s): O80 - ENCOUNTER FOR FULL-TERM UNCOMPLICATED DELIVERY SNOMED Code(s): 14811152 Plan: Continue routine care. The patient will be discharged home tomorrow pending no maternal complications.
[2023-01-21] MEDS: IBUPROFEN 600 MG TAB PO PRN (20:23)
[2023-01-21] MEDS: SENNOSIDES-DOCUSATE SODIUM 1 EACH TAB PO SCH ×2 (20:23→21:25)
[2023-01-22 03:43] LABS: HIV 2 AB Non-Reactive (Non-Reactive); HIV AB P24 Non-Reactive (Non-Reactive); HIV P24 AG Non-Reactive (Non-Reactive)
[2023-01-22] MEDS: IBUPROFEN 600 MG TAB PO PRN (04:04)
--- NOTE | 2023-01-22 08:16 | P.DS ---
Providers Date of admission: 01/19/23 22:21 Expected date of discharge: 01/22/23 Attending physician: Sam Spring Primary care physician: Stated None - Discharge Diagnosis(es) (1) Active labor at term Current Visit: Yes Status: Acute (2) Meconium in amniotic fluid affecting management of mother Current Visit: Yes Status: Acute (3) No care in current Current Visit: Yes Status: Acute (4) Normal spontaneous vaginal delivery Current Visit: Yes Status: Acute Hospital Course: This is a 27 year old 2 now para 2 woman who presented at term in spontaneous active labor. She did receive care at a different facility. Following admission she was noted to be 6 cm dilated. She underwent artificial rupture of membranes at which time meconium-stained fluid was noted. She went on to have a rapid delivery of a liveborn female infant over an intact perineum weighing 7 lbs. 7 oz. with Apgars of 7 at 1 minute and 9 at 5 minutes. She done known group B strep status. Her course was unremarkable. By day #1 she was ambulating and voiding without difficulty. Her lochia was moderate. Infant was being monitored for insufficient group B strep prophylactic antibiotics however all signs reassuring. By day #2 both mother and infant continued to do very well. Stable vital signs, minimal lochia, ambulating and voiding without difficulty and tolerating a general diet and oral pain medications. She was therefore discharged home with routine instructions for care and follow-up. Patient Condition at Discharge: Good Plan - Discharge Summary New Discharge Prescriptions: No Action Vit No.179/Iron/Folic [ Tablet] 1 each PO DAILY Omeprazole 20 mg PO DAILY Discharge Medication List Omeprazole 20 mg PO DAILY 01/19/23 [History] Vit No.179/Iron/Folic [ Tablet] 1 each PO DAILY 01/19/23 [History] Follow up Appointment(s)/Referral(s): Sam Spring MD [STAFF PHYSICIAN] - 6 Weeks Activity/Diet/Wound Care/Special Instructions: Follow-up in the office in 6 weeks . Call with any concerning signs or symptoms including heavy vaginal bleeding, severe abdominal pain, fever greater than 101, swelling or redness of the lower extremities, foul vaginal discharge, or signs of depression. Nothing in the vagina for 6 weeks after delivery, specifically no intercourse. Discharge Disposition: HOME SELF-CARE
[2023-01-22 09:07] VITALS: BP 126/81; PULSE 68; RESP 16; TEMP 97.9
[2023-01-22] MEDS: SENNOSIDES-DOCUSATE SODIUM 1 EACH TAB PO SCH (09:09)
== END 2023-01-22 10:02 | disposition home or self-care (01) | DRG 560 ==
LOC: FBPOP 21:40 → 4FBP 22:21
PROVIDERS: ADMIT Obstetrics & Gynecology; ATTEND Obstetrics & Gynecology
PROC: 10E0XZZ Delivery of Products of Conception, External Approach (ICD-10-PCS; principal; 2023-01-19)
PROC: 4A0HXCZ Measurement of Products of Conception, Cardiac Rate, External Approach (ICD-10-PCS; 2023-01-19)
PROC: 10907ZC Drainage of Amniotic Fluid, Therapeutic from Products of Conception, Via Natural or Artificial Opening (ICD-10-PCS; 2023-01-19)
DX: O62.3 Precipitate labor (principal); O69.81X0 Labor and delivery complicated by cord around neck, without compression, not applicable or unspecified; O77.0 Labor and delivery complicated by meconium in amniotic fluid; Z37.0 Single live birth; Z3A.39 39 weeks gestation of pregnancy
CPT/HCPCS: 59025; 80306; 81001; 82947; 85025; 86762; 86780; 86850; 86900; 86901; 87340; 87390; 87491; 87591; 99213

== ENCOUNTER → 2023-06-28 | Outpatient (CLI) | payer OTHER ==
--- NOTE | 2023-06-28 12:04 | XR ---
EXAMINATION TYPE: XR cervical spine comp DATE OF EXAM: 06/28/2023 COMPARISON: NONE HISTORY: Pain TECHNIQUE: Four views are submitted. FINDINGS: The odontoid is intact. There are no compression deformities. The prevertebral soft tissue structur es are within normal limits. There is loss of the cervical lordosis. There is minimal anterior listh esis C3-4, C4-5 and C5-C6. The position. IMPRESSION: 1. Loss of the normal cervical lordosis possibly related to spasm. Consider follow-up MRI.
--- NOTE | 2023-06-28 12:06 | XR ---
EXAM TYPE: LUMBAR SPINE X RAY SERIES COMPARISON: NONE HISTORY: Pain TECHNIQUE: 4 views are submitted. FINDINGS: Alignment is anatomic. The pedicles are intact. The transverse processes are intact. There is no s pondylolysis or spondylolisthesis. Facet arthropathy L5-S1. Sclerosis along the upper margin of bila teral SI joints. IMPRESSION: 1. Facet arthropathy L5-S1. 2. Partially included appears to be sclerosis involving the SI joints correlate for sacroiliitis.
--- NOTE | 2023-06-28 12:07 | XR ---
EXAMINATION TYPE: XR sacroiliac joint comp BILAT DATE OF EXAM: 06/28/2023 COMPARISON: NONE HISTORY: Chronic pain TECHNIQUE: 3 views submitted FINDINGS: There is sclerosis bilateral SI joints compatible sacroiliitis. No erosive changes. Sacral struts are intact. IMPRESSION: Bilateral fairly symmetric sacroiliitis.
== END | disposition home or self-care (01) ==
LOC: RADXRMAIN 10:20
PROVIDERS: ATTEND Family Medicine
DX: M24.849 Other specific joint derangements of unspecified hand, not elsewhere classified (principal); R20.2 Paresthesia of skin; M53.3 Sacrococcygeal disorders, not elsewhere classified; M47.817 Spondylosis without myelopathy or radiculopathy, lumbosacral region; M46.1 Sacroiliitis, not elsewhere classified
CPT/HCPCS: 72050; 72110; 72202